=== PATIENT | female | born 1955 | race African-American/Black ===

== ENCOUNTER 2023-02-20 12:50 | Emergency (ER) | payer MEDICARE ==
[~2023-02-20] VITALS: Ht 167.6 cm; Wt 87.0 kg
[2023-02-20 12:51] VITALS: BP 155/77; PULSE 86; TEMP 98.6; O2SAT 97
[2023-02-20 14:04] VITALS: RESP 17
[2023-02-20] MEDS ORDERED: BENZ-38 PO (14:27)
== END 2023-02-20 14:51 | disposition home or self-care (01) ==
LOC: ER 12:50
DX: J32.8 Other chronic sinusitis (principal); Z88.1 Allergy status to other antibiotic agents; Z79.899 Other long term (current) drug therapy
CPT/HCPCS: 99283

== ENCOUNTER 2023-03-01 11:14 | Emergency (ER) | payer MEDICARE ==
[~2023-03-01 11:14] MED LIST: BENZ-38 PO
== END 2023-03-01 18:58 | disposition left against medical advice (07) ==
LOC: ER 11:14
DX: J02.9 Acute pharyngitis, unspecified (principal); Z53.21 Procedure and treatment not carried out due to patient leaving prior to being seen by health care provider